=== PATIENT | male | born 1980 | race Caucasian/White ===

== ENCOUNTER 2017-09-19 15:43 | Emergency (ER) | payer OTHER ==
[~2017-09-19] VITALS: Ht 175.3 cm; Wt 79.5 kg
[~2017-09-19 15:43] MED LIST: LANTUS INSULIN10 ML SC; NORCO 10/325 TA1 TA1; NOVOLOG100 U/M1 SQ
[2017-09-19 16:06] VITALS: Ht 175.3 cm; Wt 79.5 kg
[2017-09-19] MEDS ORDERED: ROBAXIN-750750 MG PO (18:30)
[2017-09-19] MEDS ORDERED: VOLTAREN75 MG PO (18:30)
[2017-09-19 19:26] VITALS: BP 138/96
== END 2017-09-19 19:10 | disposition home or self-care (01) ==
LOC: D.ER 15:43
DX: S39.012A Strain of muscle, fascia and tendon of lower back, initial encounter (principal); V49.9XXA Car occupant (driver) (passenger) injured in unspecified traffic accident, initial encounter; Y93.89 Activity, other specified; Y92.410 Unspecified street and highway as the place of occurrence of the external cause; E11.9 Type 2 diabetes mellitus without complications